=== PATIENT | male | born 1950 | race Caucasian/White ===

== ENCOUNTER 2019-08-25 00:04 | Inpatient (IN) | payer MEDICARE, OTHER, SELFPAY ==
[2019-08-25] VITALS (126 sets, daily range): BP systolic 83–185; BP diastolic 49–120; PULSE 61–131; RESP 11–49; TEMP 36.3–37.1; O2SAT 78–98; BMI 30.1
--- NOTE | 2019-08-25 00:15 | XRR_ITS ---
PROCEDURE INFORMATION: Exam: XR Chest, 1 View Exam date and time: 08/25/2019 1:14 AM Age: 68 years old Clinical indication: Chest pain. TECHNIQUE: Imaging protocol: XR of the chest Views: 1 view. COMPARISON: No relevant prior studies available. FINDINGS: Lungs: Bilateral central bronchial wall thickening and haziness. Septal line formation inferiorly on the right. No focal peripheral lung consolidation, air bronchogram formation, or silhouette sign. Pleural space: No pleural effusion or pneumothorax. Heart/Mediastinum: The cardiac silhouette is enlarged. The mediastinal contours are normal. Vasculature: The thoracic aorta is atherosclerotic and tortuous. Bones/joints: No acute osseous abnormality. XR/XR chest 1V portable [id number] IMPRESSION: Mild bronchial/interstitial edema, potentially cardiogenic.
--- NOTE | 2019-08-25 00:16 | ECG_ITS ---
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 Measurements Intervals [place] Rate: 77 P: 8 MN: 193 QRS: -20 QRSD: 110 T: 77 QT: 397 QTc: 452 Interpretive Statements SINUS RHYTHM WITH FREQUENT VENTRICULAR PREMATURE COMPLEXES INFERIOR MYOCARDIAL INFARCTION , OF INDETERMINATE AGE [40+ ms Q WAVE AND/OR ST/T ABNORMALITY IN II/aVF] No previous ECG available for comparison Electronically Signed On 08-25-2019 16:51:01 CDT by Swathi Hall M.D. [id number] f
--- NOTE | 2019-08-25 00:21 | ED_ITS ---
HPI - Chest Pain General: Chief Complaint: Chest Pain Stated Complaint: cp Time Seen by Provider: 08/25/19 00:10 Source: patient Mode of arrival: ambulatory Limitations: no limitations History of Present Illness: HPI narrative: Mr. valderrama is a 68-year-old male who comes in complaining of chest pain. He describes the pain as a tightness that radiates back to both shoulders. He denies any shortness of breath, nausea or vomiting and actually states that he feels better when he exerts himself. He denies any diaphoresis. Patient denies having nothing similar in the past. He has no history of coronary artery disease but does have history of diabetes, hypertension and hyperlipidemia. Patient rates his pain a 2 out of 10 at the present time. Associated symptoms: Deny abdominal pain, diaphoresis, dyspnea, fever(s), nausea, palpitations, syncope or vomiting Review of Systems Const: Denies: fever(s), chills, body aches, fatigue, malaise or diaphoresis Eyes: Denies: change in vision, blurry vision, blind spots, photophobia, eye discharge or eye redness ENMT: Denies: throat pain, odynophagia, hoarseness, swelling of lips/tongue, oral sores, ear or mastoid pain, ear discharge, change in hearing or nasal discharge Card: Denies: palpitations, irregular heart rhythm, edema, lightheadedness, syncope, pre-syncope, dyspnea on exertion or orthopnea Resp: Denies: dyspnea, productive cough, non-productive cough, wheezing, hemoptysis or chest congestion GI: Denies: abdominal pain, nausea, vomiting, hematemesis, coffee ground emesis, heartburn, diarrhea, constipation, GI cramping, hematochezia or melena : Denies: flank pain, dysuria, urinary frequency, urinary urgency or hematur ia Musc: Denies: neck pain, back pain, extremity pain, extremity swelling, joint pain, joint swelling, joint redness, joint warmth or joint stiffness Skin/Breast: Denies: rash, pruritus, erythema, skin tenderness or jaundice Neuro: Denies: headache(s), numbness in extremities, weakness in extremities, sensory changes, lack of coordination, difficulty walking, dizziness, vertigo, confusion, Slurred speech present or seizure-like activity Abad/Lymph: Denies: easy bruising, easy bleeding, petechiae, purpura or enlarged lymph nodes All/Imm: Denies: urticaria, throat swelling, tongue swelling, facial swelling or acute wheezing PFSH ED PFSH: Medical History (Updated 08/25/19 @ 01:28 by Crissy Gill) DM type 2 (diabetes mellitus, type 2) Hyperlipidemia Hypertension Physical Exam Const: COMMON NORMALS: no acute distress, patient oriented x3, no limitations, healthy appearing and well nourished GENERAL APPEARANCE: cooperative, well kempt and well developed HENMT: COMMON NORMALS: normocephalic, atraumatic, external ears normal, EAC's normal and Normal external nose present HEAD & SCALP: normal to inspection, normocephalic and atraumatic FACE & SINUS: normal facial exam and face symmetric NOSE: Normal external nose present and Normal nares present EXTERNAL EAR: Yes external ears normal EXTERNAL AUDITORY CANAL: EAC's normal MOUTH: Normal oral and palatal mucosa present, lip normal and tongue normal Eye: COMMON NORMALS: Equal, round and reactive pupils present and conjunctivae normal GENERAL EYE: appearance normal, both eyes and all related structures ALIGNMENT: Yes alignment normal PERIORBITAL: periorbital findings normal EYELID: eyelids normal CONJUNCTIVA: Yes conjunctivae normal SCLERA: sclerae normal PUPIL: Yes Equal, round and reactive pupils present Neck/C-Spine: COMMON NORMALS: full ROM, no lymphadenopathy, supple, no meningeal signs and no JVD GENERAL: Yes normal visual inspection and Yes trachea midline Chest: COMMONS NORMALS: normal inspection of the chest and normal palpation of entire chest wall Resp: COMMON NORMALS: normal respiratory effort, No retractions and No use of accessory muscles EFFORT & INSPECTION: Yes able to speak in complete sentences and Yes symmetric chest movement AUSCULTATION: no crackles, no rales, no rhonchi and no wheezes Cardio: COMMON NORMALS: no JVD, regular rate, regular rhythm, S1 normal heart sound present and S2 normal heart sound present RATE: regular rate RHYTHM: regular rhythm HEART SOUNDS: S1 normal heart sound present, S2 normal heart sound present, no click, no gallops, no murmurs, no rubs and abnormal split S2 GI: COMMON NORMALS: Soft to palpation and No hepatosplenomegaly present PALPATION: Yes Soft to palpation, No Tenderness to palpation present (GI), No Guarding due to palpation present (GI), No Rigid due to palpation, Yes No hepatosplenomegaly present, No Hernia present, No Palpable mass present and No Pulsatile mass present : COMMON NORMALS: Yes no CVA tenderness BLADDER/KIDNEY EXAM: Yes no CVA tenderness Back/Pelvis: COMMON NORMALS: no CVA tenderness, thoracic and lumbar spine normal to inspection, no thoracic nor lumbar tenderness and thoraco-lumbar ROM normal Extremity: COMMON NORMALS: normal to inspection, full ROM, capillary refill normal, no joint enlargement, no clubbing, cyanosis or edema and no calf tenderness Neuro: COMMON NORMALS: patient oriented x3, CN's II-XII intact bilaterally, moves all extremities, no focal motor deficits and no sensory deficits noted MENINGEAL SIGNS: Yes no meningeal signs SPEECH: speech normal Psych: COMMON NORMALS: mental status grossly normal, Normal thought process present, cooperative, normal affect, speech normal and activity/motor behavior normal APPEARANCE: Yes well kempt SPEECH: Yes normal speech THOUGHT PROCESS: Normal thought process present Skin: COMMON NORMALS: no rashes or lesions noted, turgor normal, no jaundice, no petechiae and no mottling GENERAL SKIN EXAM: no rashes or lesions noted and turgor normal Course Vital Signs: Vital signs: Vital Signs Temperature 97.6 F 08/25/19 00:10 Pulse Rate 84 08/25/19 03:55 Respiratory Rate 23 H 08/25/19 03:55 Blood Pressure 124/71 08/25/19 03:55 Pulse Oximetry 92 08/25/19 03:55 MDM - Chest Pain MDM Narrative: Medical decision making narrative: Mr. valderrama is a 68-year-old male comes in with chest pain resolved with nitroglycerin here. EKG showed no evidence of ST segment elevation. They were reviewed with Dr. Hall and she is in agreement. The case was reviewed with Dr. Smalls he agrees to admission. Patient is pain-free. The patient will be admitted to the cardiac stepdown unit for further evaluation and care. Lab Data: Attestation: I reviewed the patient's lab results. Labs: Lab Results 08/25/19 08/25/19 08/25/19 Range/Units 00:30 00:30 00:30 WBC 10.3 H (4.0-10.0) 10^3/ uL RBC 4.56 (4.1-5.3) 10^6/u L Hgb 14.8 (11.7-16.6) g/dL Hct 44.0 (42.0-52.0) % MCV 96.5 H (80-94) fL MCH 32.5 (28.0-34.0) pg MCHC 33.6 (30.0-36.0) g/dL RDW 13.2 (12.1-15.1) % Plt Count 216 (130-400) 10^3/c mm MPV 11.1 H (7.4-10.4) fL Neut % (Auto) 62.1 % Lymph % (Auto) 25.3 % [place] % (Auto) 8.3 % Eos % (Auto) 3.6 % Baso % (Auto) 0.3 % Neut # (Auto) 6.39 (1.8-7.7) 10^3/u L Lymph # (Auto) 2.6 (0.8-4.8) 10^3/u L [place] # (Auto) 0.9 (0.2-0.9) 10^3/u L Eos # (Auto) 0.4 (0.0-0.8) 10^3/u L Baso # (Auto) 0.0 (0.0-0.1) 10^3/u L Nucleated RBC % (a uto) 0 % Nucleated RBCs # 0.0 /100WBC PT 12.60 (10.5-13.3) SECO NDS INR 0.92 (0.8-1.2) Sodium 137 (136-145) mmol/L Potassium 4.0 (3.5-5.1) mmol/L Chloride 102 (98-107) mmol/L Carbon Dioxide 22 (22-29) mmol/L Anion Gap 17.0 (5-19) BUN 19 (8-23) mg/dL Creatinine 1.1 (0.7-1.2) mg/dL GFR Calculation 66.2 L (90-130) mL/min Glucose 177 H (65-115) mg/dL Calculated Osmolal ity 285 (285-295) mOsm/k g Calcium 9.4 (8.5-10.5) mg/dL Magnesium 1.9 (1.7-2.3) mg/dL Total Bilirubin 0.2 (0.15-1.2) mg/dL AST 20 (0-40) U/L ALT 29 (0-41) U/L Alkaline Phosphata se 83 (40-130) IU/L Troponin T Baselin e (0-15) ng/L Troponin T 120 Min [place] (0-15) ng/L Delta Troponin T (0-10) ABS# Total Protein 7.1 (6.6-8.7) g/dL Albumin 4.3 (3.5-5.2) g/dL Globulin 2.8 (1.3-4.6) g/dL Lipase 88 H (13-60) U/L Urine Color (Yellow) Urine Appearance (CLEAR) Urine pH (5-7) Ur Specific Gravit y (1.005-1.030) Urine Protein (Negative) Urine Glucose (UA) (Normal) Urine Ketones (Negative) Urine Blood (Negative) Urine Nitrate (Negative) Urine Bilirubin (NEGATIVE) Urine Urobilinogen (Negative) mg/dL Ur Leukocyte Carmel[place] ase (Negative) Urine RBC (0-2) /hpf Urine WBC (0-5) /hpf Ur Squamous Epith Cells (0-5) Urine Bacteria (NONE) 08/25/19 08/25/19 08/25/19 Range/Units 00:30 01:13 02:08 WBC (4.0-10.0) 10^3/ uL RBC (4.1-5.3) 10^6/u L Hgb (11.7-16.6) g/dL Hct (42.0-52.0) % MCV (80-94) fL MCH (28.0-34.0) pg MCHC (30.0-36.0) g/dL RDW (12.1-15.1) % Plt Count (130-400) 10^3/c mm MPV (7.4-10.4) fL Neut % (Auto) % Lymph % (Auto) % [place] % (Auto) % Eos % (Auto) % Baso % (Auto) % Neut # (Auto) (1.8-7.7) 10^3/u L Lymph # (Auto) (0.8-4.8) 10^3/u L [place] # (Auto) (0.2-0.9) 10^3/u L Eos # (Auto) (0.0-0.8) 10^3/u L Baso # (Auto) (0.0-0.1) 10^3/u L Nucleated RBC % (a uto) % Nucleated RBCs # /100WBC PT (10.5-13.3) SECO NDS INR (0.8-1.2) Sodium (136-145) mmol/L Potassium (3.5-5.1) mmol/L Chloride (98-107) mmol/L Carbon Dioxide (22-29) mmol/L Anion Gap (5-19) BUN (8-23) mg/dL Creatinine (0.7-1.2) mg/dL GFR Calculation (90-130) mL/min Glucose (65-115) mg/dL Calculated Osmolal ity (285-295) mOsm/k g Calcium (8.5-10.5) mg/dL Magnesium (1.7-2.3) mg/dL Total Bilirubin (0.15-1.2) mg/dL AST (0-40) U/L ALT (0-41) U/L Alkaline Phosphata se (40-130) IU/L Troponin T Baselin e 19 H (0-15) ng/L Troponin T 120 Min [place] 34.29 H (0-15) ng/L Delta Troponin T 15.29 H* (0-10) ABS# Total Protein (6.6-8.7) g/dL Albumin (3.5-5.2) g/dL Globulin (1.3-4.6) g/dL Lipase (13-60) U/L Urine Color Yellow (Yellow) Urine Appearance Clear (CLEAR) Urine pH 5 (5-7) Ur Specific Gravit y 1.020 (1.005-1.030) Urine Protein Neg (Negative) Urine Glucose (UA) Norm (Normal) Urine Ketones Negative (Negative) Urine Blood Neg (Negative) Urine Nitrate Negative (Negative) Urine Bilirubin Neg (NEGATIVE) Urine Urobilinogen Norm (Negative) mg/dL Ur Leukocyte Carmelina ase Negative (Negative) Urine RBC None (0-2) /hpf Urine WBC None (0-5) /hpf Ur Squamous Epith Cells None (0-5) Urine Bacteria None (NONE) Imaging Data^: CXR: My impression: No acute cardiopulmonary findings. EKG Data^: EKG 1: Attestation: I personally reviewed and interpreted this EKG as follows: EKG interpretation date: 08/25/19 EKG interpretation time: 00:31 Interpretation: Normal sinus rhythm at 60 beats a minute, PVC couplets, nonspecific ST and T wave changes. Coding Level of Care Code ED News Assignment Editor for Chg Fwd Exam Comprehensive
[2019-08-25] MEDS: aspirin 325 mg Tablet PO (00:38)
[2019-08-25] MEDS: nitroglycerin 0.4 mg sublingual Tablet SUBLINGUAL ×3 (00:39→00:51)
[2019-08-25 00:40] LABS: Basophils % 0.3 %; Eosinophils # 0.4 10^3/uL (0.0-0.8); Eosinophils % 3.6 %; Hemoglobin 14.8 g/dL (11.7-16.6); Lymphocytes # 2.6 10^3/uL (0.8-4.8); Lymphocytes % 25.3 %; Mean Corpuscular HGB Conc 33.6 g/dL (30.0-36.0); Mean Corpuscular Hemoglobin 32.5 pg (28.0-34.0); Mean Corpuscular Volume 96.5 fL (80-94); Mean Platelet Volume 11.1 fL (7.4-10.4); Monocytes # 0.9 10^3/uL (0.2-0.9); Monocytes % 8.3 %; Neutrophils # 6.39 10^3/uL (1.8-7.7); Neutrophils % 62.1 %; Nucleated Red Blood Cells % 0 %; Platelet Count 216 10^3/cmm (130-400); Red Blood Count 4.56 10^6/uL (4.1-5.3); Red Cell Distribution Width 13.2 % (12.1-15.1); White Blood Count 10.3 10^3/uL (4.0-10.0)
[2019-08-25 00:56] LABS: INR 0.92 (0.8-1.2)
[2019-08-25 01:03] LABS: Alanine Aminotransferase 29 U/L (0-41); Albumin Level 4.3 g/dL (3.5-5.2); Alkaline Phosphatase 83 IU/L (40-130); Aspartate Amino Transferase 20 U/L (0-40); Blood Urea Nitrogen 19 mg/dL (8-23); Calcium 9.4 mg/dL (8.5-10.5); Carbon Dioxide 22 mmol/L (22-29); Chloride 102 mmol/L (98-107); Globulin 2.8 g/dL (1.3-4.6); Glomerular Filtration Rate 66.2 mL/min (90-130); Glucose 177 mg/dL (65-115); Lipase 88 U/L (13-60); Magnesium 1.9 mg/dL (1.7-2.3); Osmolality Calculated 285 mOsm/kg (285-295); Sodium 137 mmol/L (136-145); Total Bilirubin 0.2 mg/dL (0.15-1.2); Total Protein 7.1 g/dL (6.6-8.7)
[2019-08-25 01:05] LABS: Troponin(5th) Baseline 19 ng/L (0-15)
[2019-08-25] MEDS: nitroglycerin 1 gm/inch oint Pkt 1 INCH TOPICAL (01:21)
[2019-08-25 01:28] LABS: Bilirubin Urine Neg (NEGATIVE); Blood Urine Neg (Negative); Glucose Urine UA Norm (Normal); Ketones Urine Negative (Negative); Leukocyte Esterase Urine Negative (Negative); Nitrate Urine Negative (Negative); Protein Urine Neg (Negative); Urine Appearance Clear (CLEAR); Urine Color Yellow (Yellow); Urobilinogen Urine Norm (Negative); pH Urine 5 (5-7)
[2019-08-25] MEDS: morphine 4 mg/mL SDV 1 mL IVP (01:37)
[2019-08-25] MEDS: ondansetron 2 mg/ML SDV 2 mL 4 MG IVP ×2 (01:37→20:50)
--- NOTE | 2019-08-25 02:16 | ECG_ITS ---
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 Measurements Intervals [place] Rate: 79 P: 28 ID: [id number] QRS: -34 QRSD: 109 T: 80 QT: 410 QTc: 472 Interpretive Statements SINUS RHYTHM WITH FREQUENT VENTRICULAR PREMATURE COMPLEXES INFERIOR MYOCARDIAL INFARCTION , OF INDETERMINATE AGE [40+ ms Q WAVE AND/OR ST/T ABNORMALITY IN II/aVF] No previous ECG available for comparison Electronically Signed On 08-25-2019 17:03:09 CDT by Swathi Hall M.D. [id number]
[2019-08-25 02:36] LABS: Troponin 5 2HR 34.29 ng/L (0-15)
[2019-08-25 02:39] LABS: Troponin 5 2HR Delta 15.29 ABS# (0-10)
[2019-08-25] MEDS: ticagrelor 90 mg Tablet 180 MG PO (03:29)
[2019-08-25] MEDS: enoxaparin 100 mg/mL Syringe 95 MG SUBCUT (03:30)
--- NOTE | 2019-08-25 05:40 | PC.NURSE ---
Home medications Patient states states that he has a list of medications that is currently with his at home. He is uncertain of what medications he takes.
[2019-08-25] MEDS: sodium chloride 0.9% 1,000 ML 50 ML IV ×2 (05:59→23:48)
--- NOTE | 2019-08-25 06:16 | ECG_ITS ---
[facility] Test Date: 2019-08-25 Pat Name: Eric Varela Department: Room: 279 Gender: Male Cell Technician: : 1950 Requested By: Crissy Salamanca Order Number: [id number] Froy MD: Swathi Hall M.D. Measurements Intervals [place] Rate: 77 P: 8 [place]: 193 QRS: -20 QRSD: 110 T: 77 QT: 397 QTc: 452 Interpretive Statements SINUS RHYTHM WITH FREQUENT VENTRICULAR PREMATURE COMPLEXES INFERIOR MYOCARDIAL INFARCTION , OF INDETERMINATE AGE [40+ ms Q WAVE AND/OR ST/T ABNORMALITY IN II/aVF] No previous ECG available for comparison Electronically Signed On 08-25-2019 22:44:31 CDT by Swathi Hall M.D. [email or web address]/[id number] f
[2019-08-25] MEDS: pneumococcal (23 valent) SDV 0.5 mL IM (06:56)
--- NOTE | 2019-08-25 07:01 | PM.CONSULT ---
Providers/Reason For Consult Consulting Physican/Specialty*: Dr. 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 Patient had his dinner around 6 in the evening and around 11 PM when he was getting ready to go to bed he developed retrosternal chest discomfort pressure-like described as elephant sitting on his chest that lasted for a long duration until he was in the ER and was treated with medications. He complains of bilateral shoulder pain along with chest discomfort. He does have history of gastroesophageal reflux disease but this chest pain was different from his normal heart rene. Denies having any nausea, vomiting shortness of breath. He denies having any fever or chills. He does complain of some nasal discharge and occasional cough due to postnasal drainage. He is a resident of [place] and was at [address] with his daughter for a 2-week camping trip. Overnight he denies having any chest pain. EKG on arrival showed sinus rhythm with frequent PVCs. Inferior myocardial infarction of indeterminate age. Baseline troponin T of 19 which increased at 120 minutes to 34 and 6-hour troponin T of 853. Normal liver function with GFR greater than 60. Chest x-ray with mild bronchial/interstitial edema. Review of Systems Const: Denies: fever(s), chills, change in appetite, change in weight, fatigue or malaise Eyes: Denies: change in vision ENMT: Reports: nasal congestion and post nasal drip; Denies: throat pain, swelling of lips/tongue or bleeding gums Card: Reports: chest pain and irregular heart rhythm; Denies: palpitations, edema, lightheadedness, syncope, dyspnea on exertion, orthopnea or leg pain with exertion Resp: Denies: dyspnea, productive cough, wheezing or hemoptysis GI: Denies: abdominal pain, nausea, vomiting, hematemesis, heartburn, diarrhea, constipation, change in bowel habits, hematochezia or melena : Denies: dysuria, oliguria or hematuria Musc: Denies: back pain, extremity swelling, joint pain or muscle weakness Skin/Breast: Denies: rash, erythema, new lesions or change in hair Neuro: Denies: weakness in extremities, lack of coordination, difficulty walking or dizziness Psych: Denies: anxiety, depression or irritability Endo: Denies: tired all the time Abad/Lymph: Denies: easy bruising, easy bleeding, petechiae or purpura All/Imm: Denies: throat swelling, tongue swelling or acute wheezing Meds/Allergies Home Medications and Allergies Allergies Allergy/AdvReac Type Severity Reaction Status Date / Time rosuvastatin [From Crestor] AdvReac ADR-Gastrointestinal Verified 08/25/19 05:53 Upset Current Medications Current Medications Generic Name Dose Route Start Last Admin Trade Name Freq PRN Reason Stop Dose Admin Sodium Chloride 1,000 mls @ 50 mls/hr 08/25/19 05:42 08/25/19 05:59 Sodium Chloride 0.9% IV 50 mls/hr .Q20H JO Administration Nitroglycerin 0.4 mg 08/25/19 00:17 08/25/19 00:51 Nitrostat SUBLINGUAL 1 tab Q5M PRN Administration CHEST PAIN PFSH Acute PFSH: Medical History BPH (benign prostatic hyperplasia) DM type 2 (diabetes mellitus, type 2) History of CVA (cerebrovascular accident) History of small bowel obstruction Hyperlipidemia Hypertension Surgical History History of abdominal surgery Reported abdominal surgery after small bowel obstruction History of discectomy X2 History of hernia repair Left inguinal hernia repair Family History Father CAD (coronary artery disease), Onset Age: 60 Hypertension Mother Hypertension Social History (Updated 08/25/19 @ 08:21 by Bernarda Washington DO) Smoking and tobacco status: former smoker Alcohol intake: current Alcohol intake frequency: few times a month Substance/Drug Use: never Vitals/I&O/Wt Last Vital Signs Temp 98.7 F 08/25/19 05:42 Pulse 75 08/25/19 05:42 Resp 20 H 08/25/19 05:42 BP 120/75 08/25/19 05:42 Pulse Ox 91 07/15/20 05:38 Weight last 48 hrs Weight 210 lb Physical Exam Const: COMMON NORMALS: no acute distress, average body habitus, patient oriented x3, alert and well nourished GENERAL APPEARANCE: cooperative, comfortable, well kempt and well developed ORIENTATION/CONSCIOUSNESS: Yes oriented to person, Yes oriented to place and Yes oriented to time HENMT: COMMON NORMALS: normocephalic, atraumatic, hearing grossly normal bilaterally, external ears normal, Normal external nose present and moist oral mucous membranes HEAD & SCALP: normocephalic and atraumatic NOSE: Normal external nose present EXTERNAL EAR: Yes external ears normal Eye: COMMON NORMALS: Equal, round and reactive pupils present, EOMs intact bilaterally and conjunctivae normal CONJUNCTIVA: Yes conjunctivae normal SCLERA: sclerae normal PUPIL: Yes Equal, round and reactive pupils present Neck/C-Spine: COMMON NORMALS: supple, no JVD and Thyroid normal; negative for No carotid bruits GENERAL: Yes trachea midline THYROID: Thyroid normal Chest: CHEST: Yes Symmetrical chest wall rise and No tenderness Resp: COMMON NORMALS: normal respiratory effort, No use of accessory muscles and clear to auscultation bilaterally AUSCULTATION: clear to auscultation bilaterally, no crackles, no rales, no rhonchi and no wheezes Cardio: COMMON NORMALS: no JVD, regular rate, regular rhythm, S1 normal heart sound present, S2 normal heart sound present and Peripheral pulses 2+ throughout; negative for No gallops present (Cardio) JUGULAR VENOUS DISTENTION: no JVD PALPATION: normal PMI, no heave, no palpable S3, no palpable S4 and no thrill RATE: regular rate RHYTHM: regular rhythm HEART SOUNDS: S1 normal heart sound present, S2 normal heart sound present and no murmurs BRUITS: no carotid bruits PERIPHERAL PULSES: Peripheral pulses 2+ throughout GI: COMMON NORMALS: Normal to inspection, nondistended, normoactive bowel sounds present, Soft to palpation and non-tender PALPATION: Yes Soft to palpation RECTAL EXAM: Yes deferred Neuro: COMMON NORMALS: patient oriented x3 and no focal motor deficits SENSORIUM/ORIENTATION: Yes alert, Yes oriented to person, Yes oriented to place and Yes oriented to time Psych: COMMON NORMALS: Normal thought process present APPEARANCE: Yes well kempt MOOD & AFFECT: Yes euthymic mood THOUGHT PROCESS: Normal thought process present THOUGHT CONTENT: Yes Normal thought content present ATTENTION/CONCENTRATION: Yes attention grossly intact MEMORY/COGNITION: Yes memory grossly intact A&P Assessment and plan (1) Non-ST elevation CT (NSTEMI): Amy risk score of 159 suggestive of 5.25% probability of in hospital and and LANE risk score of 4. -Risks and benefits of the procedure were discussed with the patient and plan is to proceed with coronary angiogram with Dr. Goel to this afternoon or tomorrow. Given vague patient symptoms of nasal discharge and congestion and his chest x-ray he is currently being tested for COVID-19. -Patient currently remains asymptomatic. Plan to proceed with coronary angiogram once COVID testing results, if status quo is maintained. -He has been loaded with Brilinta in the ER. Continue aspirin Brilinta and Lovenox. -Start on atorvastatin and low-dose metoprolol. 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 Please feel free to call with questions or concerns. Consult Attestations Medical Necessity Statement: Needs hospital stay for management of NSTEMI Coding Level of Care Code Acute Entertainment Lawyer for [facility] Fwd Exam Comprehensive Diagnoses Non-ST elevation CT (NSTEMI) I21.4 Hypertension I10 Hypertension type: essential hypertension Hyperlipidemia E78.2 Hyperlipidemia type: mixed hyperlipidemia DM type 2 (diabetes mellitus, type 2) E11.9 Diabetes mellitus complication status: without complication Diabetes mellitus adjunct faculty for medical terminology insulin use: without shelter use
[2019-08-25] MEDS: aspirin 81 mg EC Tablet PO (07:29)
--- NOTE | 2019-08-25 08:02 | P.HP_ITS ---
Providers/Chief Complaint Admitting Physician: Bernarda Washington DO Chief Complaint: cp History of Present Illness Eric Varela is a 68 year old male with a past medical history of diabetes, asthma, hypertension and BPH as well as history of CVA that presented to the emergency department for chest pain. Patient reported that he was getting ready to go to bed last night at 11 PM when he began having chest pain in the center of his chest and stated that felt like an elephant was sitting on my chest patient stated that he did not have anything to take at home which helped with his pain. He stated that he tried to get up and walk around but continued to have pain. He came into the ER for further evaluation and treatment. Stated that morphine and nitroglycerin helped with his pain. He reported that on with onset of pain in the center of his chest he did have some pain in his shoulders. He reports some sinus drainage and occasional cough due to postnasal drainage, no fevers or chills. He reported that he is traveling here from [place], [place] [address] [place] with his daughter. He denies any exposure to anyone positive for COVID-19, denies fevers or chills, denies any nausea vomiting. Patient was initially seen and evaluated in the emergency department initially 89 L on room air and admitted for non-ST elevation MD with cardiology consultation. Review of Systems Const: Denies: fever(s) or chills Eyes: Denies: change in vision ENMT: Reports: nasal congestion Card: Reports: chest pain; Denies: palpitations or edema Resp: Denies: dyspnea, productive cough or hemoptysis GI: Denies: abdominal pain, nausea, vomiting, diarrhea, constipation, hematochezia or melena : Denies: dysuria or hematuria Musc: Denies: extremity pain or muscle cramps Skin/Breast: Denies: rash or new lesions Neuro: Denies: headache(s) or dizziness Psych: Denies: anxiety or depression Endo: Denies: polyuria or hot flashes Abad/Lymph: Denies: easy bruising or easy bleeding Medications/Allergies Allergies Allergy/AdvReac Type Severity Reaction Status Date / Time rosuvastatin [From Crestor] AdvReac ADR-Gastrointestinal Verified 08/25/19 05:53 Upset PFSH Acute PFSH: Medical History BPH (benign prostatic hyperplasia) DM type 2 (diabetes mellitus, type 2) History of CVA (cerebrovascular accident) History of small bowel obstruction Hyperlipidemia Hypertension Surgical History History of abdominal surgery Reported abdominal surgery after small bowel obstruction History of discectomy X2 History of hernia repair Left inguinal hernia repair Family History Father CAD (coronary artery disease), Onset Age: 60 Hypertension Mother Hypertension Social History (Updated 08/25/19 @ 08:21 by Bernarda Washington DO) Smoking and tobacco status: former smoker Alcohol intake: current Alcohol intake frequency: few times a month Substance/Drug Use: never Supplemental [facility] Information: Lives in [facility], here traveling to visit his daughter Vitals/I&O/Wt Last Vital Signs Temp 97.4 F L 08/25/19 07:55 Pulse 76 08/25/19 07:55 Resp 18 08/25/19 07:55 BP 135/81 08/25/19 07:55 Pulse Ox 96 08/25/19 07:55 Weight last 48 hrs Weight 95.254 kg Physical Exam Const: COMMON NORMALS: patient oriented x3 and alert GENERAL APPEARANCE: cooperative ORIENTATION/CONSCIOUSNESS: Yes awake, Yes oriented to person, Yes oriented to place and Yes oriented to time HENMT: COMMON NORMALS: normocephalic and atraumatic HEAD & SCALP: normocephalic and atraumatic Eye: COMMON NORMALS: Equal, round and reactive pupils present PUPIL: Yes Equal, round and reactive pupils present Neck/C-Spine: COMMON NORMALS: supple GENERAL: Yes normal visual inspection Resp: COMMON NORMALS: normal respiratory effort and clear to auscultation bilaterally EFFORT & INSPECTION: Yes able to speak in complete sentences AUSCULTATION: clear to auscultation bilaterally, no rhonchi and no wheezes Cardio: COMMON NORMALS: regular rate, regular rhythm and No murmurs present (Cardio) RATE: regular rate RHYTHM: regular rhythm GI: COMMON NORMALS: Soft to palpation and non-tender INSPECTION: No abdominal distension AUSCULTATION: Yes normoactive bowel sounds PALPATION: Yes Soft to palpation : COMMON NORMALS: Yes no CVA tenderness BLADDER/KIDNEY EXAM: Yes no CVA tenderness Back/Pelvis: COMMON NORMALS: no CVA tenderness Extremity: COMMON NORMALS: no clubbing, cyanosis or edema and no calf tenderness Neuro: COMMON NORMALS: patient oriented x3, CN's II-XII intact bilaterally, moves all extremities and no focal motor deficits SENSORIUM/ORIENTATION: Yes alert, Yes oriented to person, Yes oriented to place and Yes oriented to time SPEECH: speech normal Psych: COMMON NORMALS: mental status grossly normal and cooperative Skin: COMMON NORMALS: no rashes or lesions noted GENERAL SKIN EXAM: no rashes or lesions noted Data : 08/25/19 00:30 08/25/19 00:30 CXR: I personally reviewed and interpreted this imaging study as follows: My impression: Chest x-ray reviewed shows bilateral haziness Radiologist's impression: FINDINGS: Lungs: Bilateral central bronchial wall thickening and haziness. Septal line formation inferiorly on the right. No focal peripheral lung consolidation, air bronchogram formation, or silhouette sign. Pleural space: No pleural effusion or pneumothorax. Heart/Mediastinum: The cardiac silhouette is enlarged. The mediastinal contours are normal. Vasculature: The thoracic aorta is atherosclerotic and tortuous. Bones/joints: No acute osseous abnormality. XR/XR chest 1V portable [id number] IMPRESSION: Mild bronchial/interstitial edema, potentially cardiogenic. A&P Assessment and plan (1) Non-ST elevation MD (NSTEMI): With onset of chest pain last night at 2100, located in the center of his chest with radiation to the shoulders Serial EKG and troponin Close monitoring on telemetry Go ahead and give treatment dose Lovenox, aspirin and Brilinta Patient has a history of diabetes, hypertension, CVA and history of smoking as well as family history of heart disease in his father in his 60s Cardiology consulted, will follow up with recommendations, appreciate consultation Echocardiogram ordered and pending Status: Acute (2) DM type 2 (diabetes mellitus, type 2): Sliding scale insulin as needed Status: Acute (3) Hyperlipidemia: Previously on Crestor and reports GI intolerance, therefore listed as allergy but appears to be more of an adverse drug event Status: Acute (4) Hypertension: Blood pressure controlled at this time, on losartan at home, will continue Status: Acute Additional A&P Information Patient onset of chest pain, concern for non-ST elevation MD, however patient is traveling from outside of [facility] and has been at [address], where there have been reported positive cases of COVID-19 due to his nasal congestion, chest x- ray findings, initial hypoxia, and chest pain will further evaluate and will swab for COVID-19. Patient to remain on isolation precautions contact and droplet History of CVA in 2014 DVT prophylaxis: On treatment dose Lovenox due to non-ST elevation MD Diet: N.p.o. CODE STATUS: Full code Attestations Medical Necessity Statement*: Patient requires inpatient hospitalization due to concern for non-ST elevation MD, expected stay greater than 2 midnights Coding Level of Care Code Acute Real Estate Office Supervisor for [facility] Fwd Exam Comprehensive Diagnoses Non-ST elevation MD (NSTEMI) I21.4 DM type 2 (diabetes mellitus, type 2) E11.9 Hyperlipidemia E78.5 Hypertension I10
[2019-08-25 09:05] LABS: Troponin 5 6HR 852.8 ng/L (0-15); Troponin 5 6HR Delta 833.8 ng/L (0-12)
[2019-08-25 09:06] LABS: D Dimer 0.44 ug/mIFEU (0-0.59)
--- NOTE | 2019-08-25 09:44 | PC.CHAP ---
Pastoral Care Encounter/Spiritual Assessment Type of Contact [] Declined web systems developer visit [] Patient/Family/Request visit [] Outpatient visit [] Follow-up visit [] Physician referral [] Code/Alert [] Routine visit [] Staff referral [] Actively dying [] Patient sleeping [] Family support [] [] Out of room [] Palliative care [] [] Receiving care in room [] Pre-surgical visit [] Trauma [] Long length of stay [] ICU visit [] Other: isolation Relational/Emotional Strength [] Patient feels connected with others/family/visitors/staff [] Distress [] Loneliness/isolation [] Abandonment Spirituality of Patient [] Person of Sharron [] Attends Anabaptism of their [place] [] Believes in Prayer [] Reads Bible or Advent materials [] There are Spiritual issues to be addressed Document Image Technician Interventions [] Prayer [] Active listening [] Non-anxious presence [] Spiritual/emotional support [] Crisis/trauma care [] Spiritual counseling [] Bereavement support [] Provided bereavement packet [] Provided Bible/devotional materials [] Provided toy/stuffed animal, coloring book to patient or family member [] Provided Communion [] Anointing/[place] [] Salvation [] Completed spiritual assessment [] Other: Impact on Illness or Injury [] Angry [] Fearful [] Anxious [] Often cries [] Exhaustion [] Unable to work [] Unable to attend sabianist [] Unable to walk/stand [] Unable to read [] Unable to drive [] Unable to eat/drink [] Unable to sleep [] Unable to be with family [] Patient intubated [] Other: Summary Time spent with patient
[2019-08-25] MEDS: ticagrelor 90 mg Tablet PO ×2 (09:59→18:49)
[2019-08-25] MEDS: metoprolol tartrate 25 mg Tablet 12.5 MG PO ×2 (10:00→18:48)
[2019-08-25 11:50] LABS: Glucose Point of Care 115 mg/dL (70-110)
--- NOTE | 2019-08-25 12:19 | ECG_ITS ---
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 Measurements Intervals [place] Rate: 73 P: 1 MO: 204 QRS: -34 QRSD: 111 T: 76 QT: 418 QTc: 461 Interpretive Statements SINUS RHYTHM INFERIOR MYOCARDIAL INFARCTION, OF INDETERMINATE AGE Compared to ECG 08/25/2019 02:58:40 Ventricular premature complex(es) no longer present Myocardial infarct finding still present Electronically Signed On 08-25-2019 16:58:21 CDT by Swathi Hall M.D. [id number]
[2019-08-25] MEDS: hyDRALAzine 20 mg/mL INJ 1 mL 10 MG IVP ×2 (12:34→19:40)
[2019-08-25 13:53] LABS: NT Pro B Type Natriuretic Pept 844 pg/mL (0-125)
[2019-08-25] MEDS: enoxaparin 100 mg/mL Syringe SUBCUT (15:53)
[2019-08-25 16:12] LABS: Glucose Point of Care 137 mg/dL (70-110)
[2019-08-25] MEDS: atorvastatin 40 mg Tablet PO (19:39)
[2019-08-25 20:26] LABS: Glucose Point of Care 169 mg/dL (70-110)
[2019-08-25] MEDS: morphine 4 mg/mL SDV 1 mL 2 MG IVP (20:40)
--- NOTE | 2019-08-25 20:41 | PC.NURSE ---
patient c/o CP. call to dr angeles. new orders recieved.
[2019-08-25] MEDS: nitroglycerin drip 50 MG/250 ML PREMIX IV (21:00)
[2019-08-26] VITALS (79 sets, daily range): BP systolic 111–181; BP diastolic 60–119; PULSE 61–99; RESP 0–32; TEMP 36.3; O2SAT 89–97
[2019-08-26 05:10] LABS: Basophils % 0.2 %; Eosinophils # 0.2 10^3/uL (0.0-0.8); Eosinophils % 2.1 %; Hematocrit 42.6 % (42.0-52.0); Hemoglobin 14.2 g/dL (11.7-16.6); Lymphocytes # 2.1 10^3/uL (0.8-4.8); Lymphocytes % 18.8 %; Mean Corpuscular HGB Conc 33.3 g/dL (30.0-36.0); Mean Corpuscular Volume 95.9 fL (80-94); Mean Platelet Volume 11.3 fL (7.4-10.4); Monocytes # 1.2 10^3/uL (0.2-0.9); Monocytes % 10.5 %; Neutrophils # 7.62 10^3/uL (1.8-7.7); Neutrophils % 68.1 %; Nucleated Red Blood Cells % 0 %; Platelet Count 206 10^3/cmm (130-400); Red Blood Count 4.44 10^6/uL (4.1-5.3); Red Cell Distribution Width 13.4 % (12.1-15.1); White Blood Count 11.2 10^3/uL (4.0-10.0)
[2019-08-26 05:31] LABS: Estmated Average Glucose 131; Hemoglobin A1C 6.2 % (4.0-6.0)
[2019-08-26 05:34] LABS: Anion Gap 14.7 (5-19); Blood Urea Nitrogen 16 mg/dL (8-23); Calcium 9.7 mg/dL (8.5-10.5); Carbon Dioxide 24 mmol/L (22-29); Chloride 108 mmol/L (98-107); Glomerular Filtration Rate 66.2 mL/min (90-130); Glucose 105 mg/dL (65-115); Osmolality Calculated 293 mOsm/kg (285-295); Potassium 3.7 mmol/L (3.5-5.1); Sodium 143 mmol/L (136-145)
[2019-08-26 05:35] LABS: Chol HDL Ratio 7.77 mg/dL (1.0-5.00); Cholesterol 233 mg/dL (0-200); HDL Cholesterol 30 mg/dL (60-100); Triglycerides 462 mg/dL (0-150)
[2019-08-26 06:05] LABS: Partial Thromboplastin Time 30.1 SECONDS (23.9-36.7)
[2019-08-26 06:08] LABS: LDL Cholesterol Direct 130 mg/dL (0-100)
[2019-08-26 07:33] LABS: Glucose Point of Care 120 mg/dL (70-110)
--- NOTE | 2019-08-26 08:13 | USCV_ITS ---
Eric Varela Age: 68 Gender: M : 1950 Exam Date: 08/26/2019 17:36 Ordering Phys: Bernarda Washington DO Technologist: Jabier Garza Exam Location: [facility] Indication: NSTEMI BP: 142 / 96 HR: 79 Rhythm: Sinus Technical Quality: Fair MEASUREMENTS (Male / Female) Normal Values 2D ECHO LV Diastolic Diameter PLAX 3.9 cm 4.2 - 5.9 / 3.9 - 5.3 cm LV Systolic Diameter PLAX 3.7 cm IVS Diastolic Thickness 0.9 cm 0.6 - 1.0 / 0.6 - 0.9 cm IVS Systolic Thickness 1.8 cm LVPW Diastolic Thickness 1.1 cm 0.6 - 1.0 / 0.6 - 0.9 cm LVPW Systolic Thickness 1.5 cm LVOT Diameter 2.1 cm LV Ejection Fraction 2D Teich 13.9 % LV Ejection Fraction MOD 2C 59.3 % LV Ejection Fraction 2C AL 59.0 % LA Diameter 3.6 cm LA Width 4.3 cm LA Height 4.7 cm RA Width 3.2 cm RA Height 5.5 cm Aorta at Sinotubular Diameter 3.3 cm M-MODE LV Diastolic Diameter MM 5.3 cm 4.2 - 5.9 / 3.9 - 5.3 cm LV Systolic Diameter MM 3.1 cm LV Ejection Fraction MM Teich 72.3 % IVS Diastolic Thickness MM 1.1 cm 0.6 - 1.0 / 0.6 - 0.9 cm IVS Systolic Thickness MM 1.9 cm LVPW Diastolic Thickness MM 1.2 cm 0.6 - 1.0 / 0.6 - 0.9 cm LVPW Systolic Thickness MM 1.9 cm RV Diastolic Diameter MM 1.7 cm Aortic Annulus Diameter 3.9 cm LA Ao Ratio MM 0.9 MV E Point Septal Separation 1.2 cm DOPPLER AV Peak Velocity 124.0 cm/s LVOT Peak Velocity 86.0 cm/s AV Area Cont Eq vti 2.5 cm squared AV Area Cont Eq pk 2.3 cm squared MV Area PHT 5.0 cm squared Mitral E to A Ratio 0.5 MV E' Velocity 7.0 cm/s Mitral E to MV E' Ratio 7.3 Mitral E to LV E' Lateral Ratio 6.6 Mitral E to LV E' Septal Ratio 8.4 TR Peak Velocity 147.0 cm/s TR Peak Gradient 8.7 mmHg TV Peak E Velocity 63.0 cm/s Right Atrial Pressure 3.0 mmHg Pulmonary Artery Systolic Pressu 11.6 mmHg PV Peak Velocity 106.0 cm/s FINDINGS Left Ventricle The left ventricle is mildly enlarged. The ventricular wall thickness is normal. There is mild apical and lateral hypokinesis. The overall ejection fraction is about 55%. The remainder the ventricle contracts normally. There is grade 1 diastolic dysfunction. Right Ventricle Normal right ventricular size and systolic function. Normal right ventricular systolic pressure. Right Atrium Mildly increased right atrial size. Left Atrium Mildly increased left atrial size. Mitral Valve Structurally normal mitral valve. Mild mitral valve regurgitation. Aortic Valve Structurally normal trileaflet aortic valve. No aortic valve stenosis. Mild aortic valve regurgitation. Tricuspid Valve Structurally normal tricuspid valve. Mild tricuspid valve regurgitation. Pulmonic Valve Pulmonic valve not well visualized. Pericardium Normal pericardium without effusion. Aorta Normal ascending aorta dimension. CONCLUSIONS The left ventricle is mildly enlarged. The ventricular wall thickness is normal. There is mild apical and lateral hypokinesis. The overall ejection fraction is about 55%. The remainder the ventricle contracts normally. There is grade 1 diastolic dysfunction. Mildly increased right atrial size. Mildly increased left atrial size. Structurally normal mitral valve. Mild mitral valve regurgitation. Structurally normal trileaflet aortic valve. No aortic valve stenosis. Mild aortic valve regurgitation. There are no prior echocardiogram studies to compare. Dr. Rajat Goel MD (Electronically Signed) Final Date: 26 August 2019 17:50 S
[2019-08-26] MEDS: aspirin 81 mg EC Tablet PO (08:34)
[2019-08-26] MEDS: metoprolol tartrate 25 mg Tablet 12.5 MG PO ×2 (08:34→18:24)
[2019-08-26] MEDS: ticagrelor 90 mg Tablet PO ×2 (08:34→18:24)
--- NOTE | 2019-08-26 10:43 | PM.PN ---
Subjective Subjective: Interval history: Patient at the side of bed upon entering the room this morning. He reported that he did have an episode of chest pain overnight, he was started on a nitroglycerin drip and chest pain has since resolved. Patient denies any chest pain or shortness of breath at time of exam this morning. I anxiously awaiting testing results for COVID-19. Patient denies any nausea or vomiting. Discussed with patient plan for cardiac cath once testing results return, he verbalizes understanding and agrees with plan. Vitals/I&O/Wt Last Vital Signs Temp 97.3 F L 08/26/19 03:45 Pulse 77 08/26/19 09:45 Resp 32 H 08/26/19 09:45 BP 173/97 08/26/19 09:45 Pulse Ox 97 08/26/19 09:45 08/25/19 08/26/19 08/26/19 22:59 06:59 14:59 Intake Total 240 / 240 890.833 / 1130.833 Output Total 400 / 1500 400 / 1900 400 / 400 Balance -160 / -1260 490.833 / -769.167 -400 / -400 Weight last 48 hrs Weight 94.801 kg Weight 95.254 kg Physical Exam Const: COMMON NORMALS: patient oriented x3 and alert GENERAL APPEARANCE: cooperative ORIENTATION/CONSCIOUSNESS: Yes awake, Yes oriented to person, Yes oriented to place and Yes oriented to time HENMT: COMMON NORMALS: normocephalic and atraumatic HEAD & SCALP: normocephalic and atraumatic Eye: COMMON NORMALS: Equal, round and reactive pupils present PUPIL: Yes Equal, round and reactive pupils present Neck/C-Spine: COMMON NORMALS: supple GENERAL: Yes normal visual inspection Resp: COMMON NORMALS: normal respiratory effort and clear to auscultation bilaterally EFFORT & INSPECTION: Yes able to speak in complete sentences AUSCULTATION: clear to auscultation bilaterally, no rhonchi and no wheezes Cardio: COMMON NORMALS: regular rate, regular rhythm and No murmurs present (Cardio) RATE: regular rate RHYTHM: regular rhythm GI: COMMON NORMALS: Soft to palpation and non-tender INSPECTION: No abdominal distension AUSCULTATION: Yes normoactive bowel sounds PALPATION: Yes Soft to palpation Extremity: COMMON NORMALS: no clubbing, cyanosis or edema and no calf tenderness Neuro: COMMON NORMALS: patient oriented x3, CN's II-XII intact bilaterally, moves all extremities and no focal motor deficits SENSORIUM/ORIENTATION: Yes alert, Yes oriented to person, Yes oriented to place and Yes oriented to time SPEECH: speech normal Psych: COMMON NORMALS: mental status grossly normal and cooperative Skin: COMMON NORMALS: no rashes or lesions noted GENERAL SKIN EXAM: no rashes or lesions noted Data : 08/26/19 04:30 08/26/19 04:30 A&P Assessment and plan (1) Non-ST elevation ME (NSTEMI): Close monitoring on telemetry Cardiology consultation, patient to go to the cardiac Real Estate Associate today On treatment dose Lovenox, given aspirin and Brilinta by cardiology and also on nitro drip at this time, chest pain-free at time of exam this morning. 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 insulin use: without usp use Diabetes mellitus complication status: without complication Qualified Code(s): E11.9 - Type 2 diabetes mellitus without complications (3) Hyperlipidemia: Previously on rosuvastatin and reports GI intolerance, therefore listed as allergy but appears to be more of an adverse drug event Started on atorvastatin has been doing fine at this time Status: Acute Qualifiers: Hyperlipidemia type: mixed hyperlipidemia Qualified Code(s): E78.2 - Mixed hyperlipidemia (4) Hypertension: Blood pressure controlled at this time, on losartan at home, will continue, also started on low-dose beta-stoney Status: Acute Qualifiers: Hypertension type: essential hypertension Qualified Code(s): I10 - Essential (primary) hypertension Additional A&P Information Patient does have pending COVID-19 testing due to chest x-ray findings, nasal congestion and visiting from outside area with travel [place] with reported positive cases of COVID-19 History of CVA in 2014 DVT prophylaxis: On treatment dose Lovenox due to non-ST elevation ME Diet: N.p.o. CODE STATUS: Full code Attestations Medical Necessity Statement*: Patient requires further hospitalization due to non-ST elevation ME Coding Level of Care Code Acute Neckties Painter for [facility] Jr Diagnoses Non-ST elevation ME (NSTEMI) I21.4 DM type 2 (diabetes mellitus, type 2) E11.9 Diabetes mellitus predatory animal exterminator insulin use: without predatory animal exterminator use Diabetes mellitus complication status: without complication Hyperlipidemia E78.2 Hyperlipidemia type: mixed hyperlipidemia Hypertension I10 Hypertension type: essential hypertension
[2019-08-26 11:33] LABS: Glucose Point of Care 134 mg/dL (70-110)
[2019-08-26] MEDS: tamsulosin 0.4 mg Capsule PO (11:46)
[2019-08-26] MEDS: losartan 50 mg Tablet 100 MG PO (11:46)
[2019-08-26 13:29] LABS: Coronavirus Lab Test PTC Negative
--- NOTE | 2019-08-26 17:00 | XACV_ITS ---
Exam Room: [facility] Ht: 178 cm Wt: 95 kg BSA: 2.19 m2 Gender: Male : 1950 Any Known Allergies: Other Exam Priority: Routine Procedure(s): Procedure Description: Diagnostic procedure Procedure Description: Left Heart Catheterization Diagnostic Cath Status: Urgent Diagnostic Findings Patient with typical angina symptoms and several risk factors who presented to the hospital with chest discomfort. Troponin elevated. Angiography recommended for non-STEMI. Procedure was done through the right radial artery. The coronary circulation is left dominant. The left main coronary artery is short. The circumflex is a very large dominant vessel and gives off a proximal obtuse marginal branch which contains an ulcerated 99% stenosis containing plaque and thrombus. The remainder the vessel consists of distal marginal branches. There is mild to moderate plaquing in these vessels but no significant stenosis. The LAD is a relatively small vessel and contains mild diffuse plaque. There is 30 to 40% stenosis in the midportion but no significant stenoses. The right coronary artery is a very small nondominant vessel and is free of disease. PCI Status: Urgent PCI LVEF Assessed: Yes PCI Indication: NSTE - ACS Interventional Findings The marginal branch was approached fairly easily. Predilatation was done with a 2.5 mm balloon. The vessel was stented with a 3.0 x 18 mm stent. A good angiographic result was obtained. Decision for PCI with Surgical Consult: No PCI for Multi-vessel Disease: No Conclusions 99% ulcerated obtuse marginal branch stenosis stented without incident. Essentially normal LV function. Recommendations Medical treatment. Interventional RX Recommendation: medical therapy and/or counseling Diagnostic RX Recommendation: medical therapy and/or counseling Anticoagulation: Heparin Ejection Fraction: 55.0 % Pressures Phase:Rest AO : 170 mmHg / 93 mmHg ( 125 mmHg ) @ 12:15:00 PM 177 mmHg / 92 mmHg ( 126 mmHg ) @ 12:15:00 PM LV : 169 mmHg / -6 mmHg / @ 12:13:00 PM 169 mmHg / -7 mmHg / @ 12:13:00 PM 155 mmHg / -3 mmHg / @ 12:15:00 PM 157 mmHg / -3 mmHg / @ 12:15:00 PM Valves Phase:DefaultPhase AV : 0.0 mmHg @ 8:13:10 AM AV Mean Gradient: 0.0 mmHg @ 8:13:10 AM Clinical Evaluation EBL: 5mL-10mL Procedural Details Procedure Consent Obtained. Admit Source: In Patient. Pre-Procedure Time Out. Identified patient by full name and date of as verbalized by the patient/guarantor. Does the consent match the physician's order: Yes. Accurate & Complete Informed Consent: Yes. Inpatient/Outpatient History & Physical on Chart: Yes. If H&P is completed, is and addenduem needed: N/A; If yes, is the addendum complete: N/A. Visualize and Verify Site with Patient/Guarantor: N/A. Relevant Radiology Images available: N/A. Pre-op teaching completed and patient verbalized understanding. The risks, benefits, and alternatives of sedation and/or procedure were discussed by physician. The patient agrees to continue. Procedure started. Correct patient, site and procedure confirmed by cath team. PERRLA. 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 Lungs clear x 5 lobes. IV Site on Arrival: 20 gauge in the left anticubital. Oxygen started at 2liters/min via nasal canula. bilateral groins was prepped with chloroprep then draped in the usual sterile fashion. right radial was prepped with chloroprep then draped in the usual sterile fashion. Baseline sample Acquired. HR: 95 BPM. Physician notified. Physician arrived. Physician scrubbed in. Immediate Pre-Procedure Time Out. Correct Patient: Yes; Correct Procedure: Yes; Correct Site: Yes; Correct Patient Position: Yes; Correct Supplies: Yes; Dried Flammable Prep: Yes; Blood Products Available: N/A;. Lidocaine 1% infiltrated to the right radial. Arterial access obtained. A 6 stateless TIG catheter in over wire. Multiple views taken of left coronary artery. Catheter redirected to the RCA. Catheter removed over the exchange wire. Catheter inserted over the exchange wire. EDP Sample taken: LV 169/-7,17; HR: 90 BPM; SpO2: 95%. LV gram performed in SLAUGHTER @ 10 mL/second for a total of 30 mL. EDP Sample taken: LV 155/-4,17; HR: 89 BPM; SpO2: 95%. Pullback taken: LV 157/-4,17; AO 170/93(125); Mean: 0mmHg, Peak to Peak: 0mmHg, SEP: 6sec/min; HR: 89 BPM; SpO2: 95%. Catheter out. 6 stateless XB 3.5 guide catheter was inserted over the wire. Runthrough guidewire was advanced through the guide catheter to lesion in the OM. Inflation number : 2 A AB TREK 2.50X12 RX BALLOON was prepped and advanced across the 1st Ob [place] , then inflated to 12 RAJESH for 0:31 seconds. Inflation number: 3 The AB TREK 2.50X12 RX BALLOON was reinflated across the 1st Ob [place], to 12 RAJESH for 0:31 seconds. Balloon out. Inflation Number : 1 A DOTTY Ingram ALBERT 3.5X18 JOSEFA -Lot Number# [id number] exp date 02/23/21 was prepped and advanced across the 1st Ob [place]. The stent was deployed at 0 RAJESH for 0:46 seconds. Stent balloon and wire out. TR band placed. Hemostasis obtained. Post Procedure: Pulses reassessed and unchanged. PERRLA. 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 No VTE prophylaxis required. Contrast type used: Omnipaque 300 mgI/mL, 500 mL bottle. Contrast Material : Omnipaque 202 ml. A TR Band was successful obtaining hemostatsis at the Right Radial artery insertion site. Medication's Wasted: Heparin = 1000 units. Medication's Wasted: Nitro = 49.8 mg. Medication's Wasted: Lidocaine 1% = 18 mL. Total IV fluids: 100 mL. [facility] Clinical Fraility Score: 3: Managing Well. Workers Compensation Analyst Indications: ACS <= 24 hours. Chest Pain Symptom Assessment: Typical Angina Symptoms. Cardiovascular Instability: No. PCI Indication: NSTE. Post-op diagnosis: NSTEMI. Complications: none. Estimated blood loss: 5mL-10mL. Procedure completed. Patient transferred by wheelchair to ICU. Vital chart was stopped. Site: Right Radial artery Sheath Size: 6 Fr Hemostasis Method: TR Band Hemostasis Success: Successful Procedure Medications Start: 4:50 PM Stop: 4:50 PM Medication: Versed Amount: 1 mg Route: I.V. Start: 4:50 PM Stop: 4:50 PM Medication: Fentanyl Amount: 50 mcg Route: I.V. Start: 5:00 PM Stop: 5:00 PM Medication: Verapamil Amount: 5 mg Route: I.A. Start: 5:00 PM Stop: 5:00 PM Medication: Nitrogylcerin Amount: 200 mcg Route: I.A. Start: 5:04 PM Stop: 5:04 PM Medication: Heparin Amount: 5000 units Route: I.V. I, the attending physician, have reviewed and verified all procedure medications. Yes, all medications given per verbal order History/Risk Factors Hypertension: Yes Dyslipidemia: Yes Diabetic Therapy: Oral Peripheral Arterial Disease (PAD): No Myocardial Infarction (MN): No Obesity: No Renal Disease: No Tobacco Use: Former Prior Interventions PCI: No CABG: No Valve Surgery: No Report Signatures Finalized by:Dr. Rajat Goel MD on 08/27/2019 8:18:27 AM
[2019-08-26] MEDS: sodium chloride 0.9% 1,000 ML 100 ML IV (18:26)
[2019-08-26 18:34] LABS: Glucose Point of Care 110 mg/dL (70-110)
[2019-08-26] MEDS: atorvastatin 40 mg Tablet PO (20:39)
[2019-08-26 20:41] LABS: Glucose Point of Care 136 mg/dL (70-110)
[2019-08-27] VITALS (12 sets, daily range): BP systolic 113–167; BP diastolic 69–98; PULSE 69–97; RESP 5–24; TEMP 36.5–36.8; O2SAT 92–96
[2019-08-27] MEDS: sodium chloride 0.9% 1,000 ML 100 ML IV (04:35)
[2019-08-27 06:00] LABS: Anion Gap 15.5 (5-19); Blood Urea Nitrogen 16 mg/dL (8-23); Calcium 9.3 mg/dL (8.5-10.5); Carbon Dioxide 20 mmol/L (22-29); Chloride 109 mmol/L (98-107); Glomerular Filtration Rate 59.9 mL/min (90-130); Glucose 113 mg/dL (65-115); Osmolality Calculated 289 mOsm/kg (285-295); Potassium 3.5 mmol/L (3.5-5.1); Sodium 141 mmol/L (136-145)
[2019-08-27 07:29] LABS: Glucose Point of Care 140 mg/dL (70-110)
--- NOTE | 2019-08-27 07:31 | PM.PN ---
Subjective Medications: Reviewed: Yes Medication Review Details: Current Medications Acetaminophen (Tylenol) 650 mg PO Q6H PRN PRN Reason: Mild/Mod Pain Or Temp >/= 101 Aspirin (Aspirin Ec) 81 mg PO DAILY [facility] Last Admin: 08/26/19 08:34 Dose: 81 mg Documented by: Atorvastatin Calcium (Lipitor) 40 mg PO BEDTIME [facility] Last Admin: 08/26/19 20:39 Dose: 40 mg Documented by: Hydralazine HCl (Apresoline) 10 mg IVP Q4H PRN PRN Reason: HYPERTENSION Last Admin: 08/25/19 19:40 Dose: 10 mg Documented by: Sodium Chloride (Sodium Chloride 0.9%) 1,000 mls @ 100 mls/hr IV .Q10H [facility] Last Admin: 08/27/19 04:35 Dose: 100 mls/hr Documented by: Insulin Aspart (Novolog) 0 unit SUBCUT BEDTIME [facility]; Protocol Last Admin: 08/26/19 20:39 Dose: Not Given Documented by: Insulin Aspart (Novolog) 0 unit SUBCUT TIDWM [facility]; Protocol Last Admin: 08/26/19 18:40 Dose: Not Given Documented by: Losartan Potassium (Cozaar) 100 mg PO DAILY [facility] Last Admin: 08/26/19 11:46 Dose: 100 mg Documented by: Metoprolol Tartrate (Lopressor) 12.5 mg PO BID [facility] Last Admin: 08/26/19 18:24 Dose: 12.5 mg Documented by: Nitroglycerin (Nitrostat) 0.4 mg SUBLINGUAL Q5M PRN PRN Reason: CHEST PAIN Last Admin: 08/25/19 00:51 Dose: 1 tab Documented by: Tamsulosin HCl (Flomax) 0.4 mg PO DAILY [facility] Last Admin: 08/26/19 11:46 Dose: 0.4 mg Documented by: Ticagrelor (Brilinta) 90 mg PO BID [facility] Last Admin: 08/26/19 18:24 Dose: 90 mg Documented by: Vitals/I&O/Wt Last Vital Signs Temp 97.3 F L 08/26/19 03:45 Pulse 69 08/27/19 06:00 Resp 5 L 08/27/19 06:00 BP 117/79 08/27/19 06:00 Pulse Ox 92 08/27/19 06:00 08/26/19 08/27/19 08/27/19 22:59 06:59 14:59 Intake Total 1000 / 1000 Output Total 150 / 1050 875 / 1925 Balance -150 / -1050 125 / -925 Weight last 48 hrs Weight 209 lb Data : 08/26/19 04:30 08/27/19 05:00 Echo: Radiologist's impression: # TTE CONCLUSIONS The left ventricle is mildly enlarged. The ventricular wall thickness is normal. There is mild apical and lateral hypokinesis. The overall ejection fraction is about 55%. The remainder the ventricle contracts normally. There is grade 1 diastolic dysfunction. Mildly increased right atrial size. Mildly increased left atrial size. Structurally normal mitral valve. Mild mitral valve regurgitation. Structurally normal trileaflet aortic valve. No aortic valve stenosis. Mild aortic valve regurgitation. There are no prior echocardiogram studies to compare Coding Level of Care Code Acute Snorkelling Instructor for Chg Fwd
--- NOTE | 2019-08-27 07:58 | P.PN_ITS ---
Subjective Subjective: Interval history: Had an uneventful night. Yesterday a stent was placed to his first obtuse marginal branch. He had no other significant stenoses. No problems overnight. No bleeding from the entry site. No chest pain this morning. Anxious to go home. Medications: Reviewed: Yes Vitals/I&O/Wt Last Vital Signs Temp 97.3 F L 08/26/19 03:45 Pulse 69 08/27/19 06:00 Resp 5 L 08/27/19 06:00 BP 117/79 08/27/19 06:00 Pulse Ox 92 08/27/19 06:00 08/26/19 08/27/19 08/27/19 22:59 06:59 14:59 Intake Total 1000 / 1000 Output Total 150 / 1050 875 / 1925 Balance -150 / -1050 125 / -925 Weight last 48 hrs Weight 209 lb Physical Exam Narrative: EXAM NARRATIVE: GENERAL: In general he looks and feels well HEENT: Exam within normal limits. NECK: Supple without jugular vein distention. The carotid upstroke is normal without bruits. BACK: Exam normal. LUNGS: Clear. HEART: Regular rate and rhythm. ABDOMEN: Benign without organomegaly or tenderness. EXTREMITIES: No edema. Right radial entry site is flat and dry without bleeding or hematoma. There is a normal pulse. NEUROLOGIC: Exam normal. SKIN: Unremarkable. 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 insulin use: without termite control technician use Diabetes mellitus complication status: without complication Qualified Code(s): E11.9 - Type 2 diabetes mellitus without complications (3) Hyperlipidemia: Status: Acute Qualifiers: Hyperlipidemia type: mixed hyperlipidemia Qualified Code(s): E78.2 - Mixed hyperlipidemia (4) Hypertension: Status: Acute Qualifiers: Hypertension type: essential hypertension Qualified Code(s): I10 - Essential (primary) hypertension (5) COPD (chronic obstructive pulmonary disease): Status: Acute (6) CAD (coronary artery disease): Status: Acute Additional A&P Information He should go home today on low-dose aspirin and Brilinta. He should continue his beta-stoney. He should also continue his angiotensin receptor stoney. The metformin should be held for 2 days post discharge. The statin should be continued. He should not lift anything more than 5 pounds for 2 days with the right upper extremity. This includes not casting his fishing armando until Friday. He should then follow-up with his primary care provider at home and identify with a transmission tester. Attestations Medical Necessity Statement*: Not applicable Coding Level of Care Code Established Pt Acute Dna Sequencing Associate for Shadyg Jr Patient Type Established History Detailed Exam Detailed Medical Decision Making Moderate Complexity Diagnoses Non-ST elevation NC (NSTEMI) I21.4 DM type 2 (diabetes mellitus, type 2) E11.9 Diabetes mellitus retirement insulin use: without termite control technician use Diabetes mellitus complication status: without complication Hyperlipidemia E78.2 Hyperlipidemia type: mixed hyperlipidemia Hypertension I10 Hypertension type: essential hypertension COPD (chronic obstructive pulmonary disease) J44.9 CAD (coronary artery disease) I25.10
[2019-08-27] MEDS: tamsulosin 0.4 mg Capsule PO (08:59)
[2019-08-27] MEDS: metoprolol tartrate 25 mg Tablet 12.5 MG PO (08:59)
[2019-08-27] MEDS: losartan 50 mg Tablet 100 MG PO (08:59)
[2019-08-27] MEDS: ticagrelor 90 mg Tablet PO (08:59)
[2019-08-27] MEDS: aspirin 81 mg EC Tablet PO (08:59)
[2019-08-27 11:59] LABS: Glucose Point of Care 116 mg/dL (70-110)
--- NOTE | 2019-08-27 12:12 | P.DS_ITS ---
Discharge Providers Date of Admission: 08/25/19 03:52 Date of Discharge: August 27, 2019 Attending Provider at Admission: Best Dominguez Attending Provider at Discharge: Bernarda Washington DO Diagnoses at Discharge Discharge Diagnosis (1) Non-ST elevation NC (NSTEMI): Status: Acute (2) DM type 2 (diabetes mellitus, type 2): Status: Acute Qualifiers: Diabetes mellitus complication status: without complication Diabetes mellitus detention insulin use: without detention use Qualified Code(s): E11.9 - Type 2 diabetes mellitus without complications (3) Hyperlipidemia: Status: Acute Qualifiers: Hyperlipidemia type: mixed hyperlipidemia Qualified Code(s): E78.2 - Mixed hyperlipidemia (4) Hypertension: Status: Acute Qualifiers: Hypertension type: essential hypertension Qualified Code(s): I10 - Essential (primary) hypertension (5) COPD (chronic obstructive pulmonary disease): Status: Acute (6) CAD (coronary artery disease): Status: Acute Reason for Visit Reason for Visit: cp Hospital Course Hospital Course: Patient was seen and evaluated in the emergency department noted to have concern for chest pain and admitted for further evaluation and treatment. He was noted to have concern for non-ST elevation NC and also COVID tested on admission. Patient was negative for COVID but continued to have rising delta troponin therefore cardiology was consulted. Patient was placed on aspirin, Brilinta and treatment dose Lovenox and monitored closely on telemetry. Cardiology was consulted and patient was taken to the cardiac [facility] on 08/26/2019 with stent to his obtuse marginal. Patient did well in the postoperative setting without any recurrence of chest pain. On date of discharge she denied any concerns, COVID testing returned negative. Patient was chest pain-free did not have any shortness of breath and no concerns. Discussed with patient plan for discharge to home he verbalized understanding and agreed with plan. Physical Exam Const: COMMON NORMALS: patient oriented x3 and alert GENERAL APPEARANCE: cooperative ORIENTATION/CONSCIOUSNESS: Yes awake, Yes oriented to person, Yes oriented to place and Yes oriented to time HENMT: COMMON NORMALS: normocephalic and atraumatic HEAD & SCALP: normocephalic and atraumatic Eye: COMMON NORMALS: Equal, round and reactive pupils present PUPIL: Yes Equal, round and reactive pupils present Neck/C-Spine: COMMON NORMALS: supple GENERAL: Yes normal visual inspection Resp: COMMON NORMALS: normal respiratory effort and clear to auscultation bilaterally EFFORT & INSPECTION: Yes able to speak in complete sentences AUSCULTATION: clear to auscultation bilaterally, no rhonchi and no wheezes Cardio: COMMON NORMALS: regular rate, regular rhythm and No murmurs present (Cardio) RATE: regular rate RHYTHM: regular rhythm GI: COMMON NORMALS: Soft to palpation and non-tender INSPECTION: No abdominal distension AUSCULTATION: Yes normoactive bowel sounds PALPATION: Yes Soft to palpation Extremity: COMMON NORMALS: no clubbing, cyanosis or edema and no calf tenderness Neuro: COMMON NORMALS: patient oriented x3, CN's II-XII intact bilaterally, moves all extremities and no focal motor deficits SENSORIUM/ORIENTATION: Yes alert, Yes oriented to person, Yes oriented to place and Yes oriented to time SPEECH: speech normal Psych: COMMON NORMALS: mental status grossly normal and cooperative Skin: COMMON NORMALS: no rashes or lesions noted GENERAL SKIN EXAM: no rashes or lesions noted Discharge Data Data Completed and Pending: Completed Studies During Hospitalization Category Date Time Status OUTSIDE SALES PROFESSIONAL request for service Routin e Exams 08/26/19 17:00 Completed XR chest 1V brisa ble [id number] Stat Exams 08/25/19 00:15 Completed CV echo complete* [id number] Routine Ultrasound 08/26/19 08:13 Completed Labs from last 24 hours 08/27/19 08/27/19 08/27/19 11:55 07:24 05:00 Sodium 141 Potassium 3.5 Chloride 109 H Carbon Dioxide 20 L Anion Gap 15.5 BUN 16 Creatinine 1.2 GFR Calculation 59.9 L Glucose 113 POC Glucose 116 140 Calculated Osmolal ity 289 Calcium 9.3 Nasal/Oral COVID-1 9 PCR 08/26/19 08/26/19 08/25/19 20:37 18:30 09:15 Sodium Potassium Chloride Carbon Dioxide Anion Gap BUN Creatinine GFR Calculation Glucose POC Glucose 136 110 Calculated Osmolal ity Calcium Nasal/Oral COVID-1 9 PCR Negative Vitals: Last Vital Signs Temp 97.3 F L 08/26/19 03:45 Pulse 69 08/27/19 06:00 Resp 5 L 08/27/19 06:00 BP 140/93 08/27/19 08:59 Pulse Ox 92 08/27/19 06:00 Discharge Plan Discharge Patient Disposition: Home, Self-Care Condition: Stable Prescriptions: New nitroglycerin [Nitrostat] 0.4 mg Tablet, Sublingual 0.4 mg sublingual Q5M PRN (Reason: Chest Pain) 30 Days Qty: 20 RF: 0 Brilinta 90 mg Tablet 90 mg PO BID 30 Days Qty: 60 RF: 0 atorvastatin 40 mg Tablet 40 mg PO BEDTIME 30 Days Qty: 30 RF: 0 Continued rabeprazole 20 mg tablet,delayed release (DR/EC) 20 mg PO DAILY RF: 0 Zyrtec 10 mg Tablet 5 mg PO DAILY RF: 0 atenolol 25 mg tablet 25 mg PO DAILY RF: 0 aspirin 81 mg Tablet,Delayed Release (Dr/Ec) 81 mg PO DAILY RF: 0 tamsulosin 0.4 mg capsule 0.4 mg PO DAILY RF: 0 losartan 100 mg tablet 100 mg PO DAILY RF: 0 Vitamin D3 25 mcg (1,000 unit) Capsule 25 mcg PO DAILY RF: 0 Fish Oil 1,000 mg (120 mg-180 mg) Capsule 1 cap PO DAILY RF: 0 Bydureon 2 mg/0.65 mL pen injector 2 mg SUBCUT RF: 0 Held metformin 500 mg tablet 500 mg PO BID RF: 0 Hold Instructions: Resume on 08/29/19. Discharge Orders: Discharge Order (Routine); Ordered 08/27/19 Ordered By: Bernarda Washington Referrals: Rajat Goel MD [Physician] - 1 week (Follow-up with heart care services in 1 week) Discharge Diet: Cardiac and Diabetic Discharge Activity: Increase activity as tolerated and Limit activity as instructed Activity Restrictions/Additional Instructions: Follow-up with primary care provider in 2 weeks or as soon as you return to home Follow-up with cardiology clinic in 1 week and recommend establishing care with a senior insight manager international with follow-up in 4 to 6 weeks You were diagnosed with a heart attack and taken to the cardiac [facility] with stent placement to your obtuse marginal. You do have some medication changes on discharge. First hold your metformin for 48 hours, you can resume this on 08/29/2019 Continue on aspirin, Brilinta, restarted on a statin medication, given nitroglycerin as needed for chest pain. No lifting more than 5 pounds over the next 48 to 72 hours, as instructed by the senior insight manager international Continue on a cardiac, carbohydrate consistent diet Follow-up with your primary care provider as noted above Return to the emergency department for any acute illness or concern. Discharge Attestations Time Spent in Discharge Care*: greater than 30 min Specific Discharge Activities: Specific discharge activities: educating patient and documenting/other paperwork Quality Metrics Clinical Quality Measures During this hospital stay, did patient experience: AMI Clinical Trial Participant: No Contraindication to aspirin (AMI): Aspirin given Contraindication to statin: Statin prescribed Contraindication to PCI: PCI performed Coding Level of Care Code Acute Machine Pan Greaser for g Fwd Diagnoses Non-ST elevation NC (NSTEMI) I21.4 DM type 2 (diabetes mellitus, type 2) E11.9 Diabetes mellitus complication status: without complication Diabetes mellitus detention insulin use: without detention use Hyperlipidemia E78.2 Hyperlipidemia type: mixed hyperlipidemia Hypertension I10 Hypertension type: essential hypertension COPD (chronic obstructive pulmonary disease) J44.9 CAD (coronary artery disease) I25.10
== END 2019-08-27 15:00 | disposition home or self-care (01) | DRG 247 ==
LOC: ER 03:56 → MEDSURG 07:34 → ICU 13:50 → MEDSURG 13:50
PROVIDERS: Emergency Medicine; Internal Medicine Cardiovascular Disease; Admitting Provider Internal Medicine; Visit Provider Family Medicine
PROC: 027034Z Dilation of Coronary Artery, One Artery with Drug-eluting Intraluminal Device, Percutaneous Approach (ICD-10-PCS; principal; 2019-08-26 17:00)
PROC: 027034Z Dilation of Coronary Artery, One Artery with Drug-eluting Intraluminal Device, Percutaneous Approach (ICD-10-PCS; 2019-08-26 17:00)
DX: I21.4 Non-ST elevation (NSTEMI) myocardial infarction (principal); I10 Essential (primary) hypertension; E11.9 Type 2 diabetes mellitus without complications; I25.10 Atherosclerotic heart disease of native coronary artery without angina pectoris; J44.9 Chronic obstructive pulmonary disease, unspecified; E78.2 Mixed hyperlipidemia; Z11.59 Encounter for screening for other viral diseases; Z79.82 Long term (current) use of aspirin; Z79.84 Long term (current) use of oral hypoglycemic drugs; N40.0 Benign prostatic hyperplasia without lower urinary tract symptoms; Z86.73 Personal history of transient ischemic attack (TIA), and cerebral infarction without residual deficits; Z87.891 Personal history of nicotine dependence
CPT/HCPCS: 12345; 36415; 36416; 71045; 80048; 80053; 80061; 81001; 82962; 83036; 83690; 83721; 83735; 83880; 84484; 85025; 85378; 85610; 85730; 87635; 90471; 90732; 93005; 93306; 93452; 96372; 96375; 99284; C1725; C1769; C1874; C1887; C1894; C9600; J0360; J1644; J1650; J1815; J2250; J2270; J2405; J3010; J3490; J7030; Q9967

== ENCOUNTER → 2019-09-02 11:39 | Outpatient (BNVA) | payer MEDICARE, OTHER, SELFPAY | PROVIDERS: Visit Provider Internal Medicine Cardiovascular Disease | DX: I25.10 Atherosclerotic heart disease of native coronary artery without angina pectoris (principal) | CPT/HCPCS: 80048 ==